=== PATIENT | female | born 1935 | race Caucasian/White ===

== ENCOUNTER 2017-04-15 19:29 | Inpatient (IN) ==
[2017-04-15] MEDS ORDERED: SODIUM CHLORIDE 0.9% INJ ONE (19:50)
[2017-04-15] MEDS ORDERED: PROTONIX IV ONE (19:50)
[2017-04-15] MEDS ORDERED: ZOFRAN IV ONE ×2 (19:50→22:13)
--- NOTE | 2017-04-15 20:12 | Diag Imaging Result Doc PS360 ---
EXAM: CHEST-PORTABLE - 04/15/2017 HISTORY: weakness TECHNIQUE: Portable chest 2000 COMPARISON: None. FINDINGS: Heart size is normal. 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 The lungs otherwise appear clear. There is no pleural effusion or pneumothorax identified. There is mild scoliosis noted. IMPRESSION: No evidence of acute disease. Electronically signed by Wallace Nunez 04/15/2017 8:10 PM
[2017-04-15] MEDS ORDERED: NS 1,000 ML IV ONE ×2 (20:16→21:54)
[2017-04-15] MEDS ORDERED: NS 2,000 ML ONE (20:17)
[2017-04-15 20:22] LABS: BASO% 0.2 % (0.0-0.8); EOS# 0.02 X1000 (0.0-0.7); EOS% 0.2 % (0.0-10.0); HEMATOCRIT 18.9 % (37.0-47.0); IMM GRAN# 0.05 X1000 (0.0-0.04); IMM GRAN% 0.4 % (0.0-0.5); LYMPH# 0.94 X1000 (1.2-3.4); LYMPH% 7.8 % (20.5-51.1); MANUAL DIFF NEEDED? NO; MCH 25.9 PG (27-31); MCHC 31.2 g/dL (33-37); MCV 82.9 FL (81-99); MONO# 0.55 X1000 (0.11-0.59); MONO% 4.6 % (1.7-9.3); NEUT% 86.8 % (42.2-75.2); PLT 342 X1000 (130-400); RBC 2.28 XMIL (4.2-5.4)
[2017-04-15 20:23] LABS: HEMOGLOBIN 5.9 g/dL (12.0-16.0)
--- NOTE | 2017-04-15 20:24 | PROVIDER DOCUMENTATION ---
HPI-Abdominal Pain/GI Problem - General Chief Complaint: GI Bleed Stated Complaint: lower gi bleed Time Seen by Provider: 04/15/17 19:39 Source: patient Allergies/Adverse Reactions: Patient Allergies Allergy/AdvReac Type Severity Reaction Status Date / Time Penicillins Allergy Unknown Verified 04/15/17 22:44 Home Medications: Home Medication List Medication Instructions Recorded Confirmed Last Taken Type Albuterol Sulfate Inhaler 2 puff INH Q4-6H PRN PRN 04/15/17 04/15/17 Unknown History [Ventolin Hfa] Allopurinol [Allopurinol] 100 mg PO QAM 04/15/17 04/15/17 04/15/17 History Amlodipine [Norvasc] 10 mg PO DAILY 04/15/17 04/15/17 04/15/17 History Calcium Carbonate/Vitamin D3 1 tab PO BID 04/15/17 04/15/17 04/14/17 History [Calcium 500 + Vit D 200 Tablet] Ferrous Sulfate 1 tab PO DAILY 04/15/17 04/15/17 04/15/17 History Fluticasone 50 Mcg Nasal Maddock 2 sprays INH DAILY 04/15/17 04/15/17 04/15/17 History [Flonase] Fluticasone/Salmet 250/50 INH 1 puff INH BID 04/15/17 04/15/17 04/15/17 History [Advair 250/50 Diskus] Hydrochlorothiazide 25 mg PO DAILY 04/15/17 04/15/17 04/15/17 History Levothyroxine [Synthroid] 0.5 mg PO DAILY 04/15/17 04/15/17 04/15/17 History Losartan Potassium 100 mg PO DAILY 04/15/17 04/15/17 04/15/17 History Meloxicam [Meloxicam] 1 tab PO DAILY 04/15/17 04/15/17 04/15/17 History P Montelukast Sodium 10 mg PO DAILY 04/15/17 04/15/17 04/15/17 History Mupirocin Calcium [Mupirocin] 1 gm TD TID 04/15/17 04/15/17 04/15/17 History Mupirocin Ointment [Bactroban 1 gm TD TID 04/15/17 04/15/17 04/15/17 History Ointment] Omeprazole [Omeprazole] 20 mg PO DAILY 04/15/17 04/15/17 04/15/17 History Permethrin 5% Cream [Elimite 5% 2 gm TD DAILY 04/15/17 04/15/17 04/14/17 History Cream] - History of Present Illness-ABD Nature of Presenting Problems: pt presents via ems. She has several episodes of coffee ground like emesis and then later on was passing burgundy colored blood clots per rectum. She has become progressively more weak throughout the day. She is not anticoagulated but does take meloxicam. No cp, dyspnea, abd pain, fever, back pain. Associated Symptoms: reports: fatigue, nausea, vomiting. denies: anxiety, cough , diarrhea, fever/chills, joint pain Dark Stools Present?: reports: maroon Rectal Bleeding: reports: bleeding without stool Rectal Pain: reports: none Emesis Description: reports: coffee grounds Bruising or Bleeding Gums?: No Similar Symptoms Previously?: No Recently seen or treated by another doctor?: No Review of Systems - Adult - REVIEW OF SYSTEMS - ADULT Constitutional: reports: fatique Eyes: reports: no symptoms reported Ears, Nose, Mouth & Throat: reports: no symptoms reported Cardiovascular: reports: no symptoms reported Respiratory: reports: no symptoms reported. denies: cough, shortness of breath Gastrointestinal: reports: see HPI Genitourinary: reports: no symptoms reported Musculoskeletal: reports: no symptoms reported. denies: back pain Integumentary: reports: no symptoms reported. denies: rash Neurological: reports: dizziness/vertigo. denies: numbness Psychiatric: reports: no symptoms reported Endocrine: reports: no symptoms reported Hematologic/Lymphatic: reports: no symptoms reported Allergic/Immunologic: reports: no symptoms reported All Other Systems: Reviewed and Negative Past History - Adult - PAST MEDICAL HISTORY-ADULT Review of Records: reports: Old Records Reviewed Major Childhood Illnesses: reports: denies history Cardiovascular: reports: HTN Respiratory: reports: denies history Gastrointestinal: reports: denies history Obstetrical/Gynecological: reports: denies history Genitourinary: reports: denies history Musculoskeletal: reports: denies history Neurological: reports: denies history Endocrine/Immune: reports: denies history Other Conditions: reports: denies history - PRIOR SURGERIES/PROCEDURES Surgical/Procedure History: reports: cholecystectomy, hysterectomy - FAMILY HISTORY Family History: reviewed, not pertinent - SOCIAL HISTORY Smoking: denies Substance Use: none/never Alcohol Use Frequency: never Physical Exam-General - PHYSICAL EXAM-ADULT Initial Vital Signs Reviewed: Yes - CONSTITUTIONAL General Appearance: alert - EYES Eyes: PERRL/EOMI, other (pale conjunctiva) - HEAD, EARS, NOSE, MOUTH & THROAT HENMT: normocephalic/atraumatic - NECK Neck: supple - RESPIRATORY Respiratory: lungs clear, normal breath sounds - CARDIOVASCULAR Cardiovascular: normal peripheral pulses, tachycardia - GASTROINTESTINAL (ABDOMEN) Abdominal Exam: normal bowel sounds, non tender, soft, no organomegaly, other ( mixture of dark/maroon stool in rectal vault.) - MUSCULOSKELETAL Back Exam: normal inspection, no CVA tenderness Extremity: non-tender - SKIN Integumentary: normal turgor, warm/dry, pallor - NEUROLOGIC Neurologic: grossly normal, no motor/sensory deficits Progress - PLAN OF CARE/RESULTS Progress/Plan/Lab Results: Vital Signs - 8 hr 04/15/17 19:52 04/15/17 20:03 04/15/17 20:16 Temperature 97.8 F Pulse Rate 140 H 118 H 123 H Respiratory Rate 20 16 25 H Blood Pressure 109/52 109/52 68/37 O2 Sat by Pulse Oximetry 98 100 Laboratory Results - last 24 hr 04/15/17 04/15/17 19:43 19:43 WBC 12.07 H RBC 2.28 L Hgb 5.9 L* Hct 18.9 L MCV 82.9 MCH 25.9 L MCHC 31.2 L RDW Std Deviation 15.1 H Plt Count 342 MPV 10.0 Immature Gran % (Auto) 0.4 Neut % (Auto) 86.8 H Lymph % (Auto) 7.8 L Saunders % (Auto) 4.6 Eos % (Auto) 0.2 Baso % (Auto) 0.2 Immature Gran # (Auto) 0.05 H Neut # (Auto) 10.49 H Lymph # (Auto) 0.94 L Saunders # (Auto) 0.55 Eos # (Auto) 0.02 Baso # (Auto) 0.02 Lipase 18 Orders Category Date Time Status Cardiac Monitoring DIRECTED Care 04/15/17 19:51 Active Saline Loc NOW Care 04/15/17 19:51 Active Transfuse .Give-Transfuse Care 08/06/17 20:22 Active CHEST-PORTABLE [RAD] Stat Exams 04/15/17 19:50 Completed CBC WITH ELECTRONIC DIFF [HEME] Stat Lab 04/15/17 19:43 Completed CK PROFILE [SP CHEM] Stat Lab 04/15/17 19:43 Received COMPREHENSIVE METABOLIC PANEL [CHEM] Stat Lab 04/15/17 19:43 Received LIPASE [CHEM] Stat Lab 04/15/17 19:43 Completed LRPC (RED CELLS) [BBK] Stat Lab 04/15/17 20:11 Uncollected MAGNESIUM [CHEM] Stat Lab 04/15/17 19:43 Received PROTIME WITH INR [COAG] Stat Lab 04/15/17 19:43 Received PTT [COAG] Stat Lab 04/15/17 19:43 Received TROPONIN T Stat Lab 04/15/17 19:43 Received TYPE & SCREEN [BBK] Stat Lab 04/15/17 19:43 Received UA NIMS W/REFLEX CULT [URINALYSIS] Stat Lab 04/15/17 19:50 Uncollected 0.9% Sodium Chloride Inj [Ns] 1,000 ml Med 04/15/17 20:17 Discontinued .ROUTE As Directed 0.9% Sodium Chloride Inj [Ns] 1,000 ml Med 04/15/17 20:16 Active IV 999 mls/hr Ondansetron [Zofran] Med 04/15/17 19:50 Discontinued 4 mg IV NOW ONE Pantoprazole [Protonix] Med 04/15/17 19:50 Discontinued 80 mg IV NOW ONE Sodium Chloride 0.9% Med 04/15/17 19:50 Discontinued 10 ml INJ NOW ONE EKG [EKG] Stat Ther 04/15/17 19:35 Ordered EKG [EKG] Stat Ther 04/15/17 19:51 Ordered 2200: pt becoming more hypotensive despite [address] Wylie and Dr. Mosley made aware of this. Dr. Keene is coming in to do egd. Result Diagrams: 04/15/17 22:04 04/15/17 22:04 - CONSULTS/PCP/HOSPITALIST Notification #1 *Consult/PCP/Hospitalist*: Dr. Keene Time Discussed: 20:30 Reason/Comments: see in am Consult Disposition: Admit #2 Consult: Dr. Mosley Time Discussed: 20:40 Consult Disposition: Will see in ED Departure - Departure Date of Disposition Decision: 04/15/17 Time of Disposition Decision: 21:03 DIAGNOSIS: GI bleed Qualifiers: GI bleed type/associated pathology: unspecified gastrointestinal hemorrhage type Qualified Code(s): K92.2 - Gastrointestinal hemorrhage, unspecified Anemia Qualifiers: Anemia type: unspecified type Qualified Code(s): D64.9 - Anemia, unspecified Disposition: ADMITTED INPATIENT 09 Certified Medical Emergency: Emergent Condition: Critical - Critical Care Note This patient required my direct & personal management of CC.: Yes Total Time (mins): 45 Critical Care Statement: This patient required my direct personal management to treat or rule out processes, the absence of which, could potentiallly result in sudden, clinically significant life or limb threatening deterioration. Attestation - Physician/ JANEY Attestation Patient care was provided by Advanced Practice Provider:: Yes Advanced Practice Provider:: Vin Veliz Advanced Practice Provider documentation review:: The Mid-level provider documentation, treatment plan and medical decision making was reviewed by the physician who agrees with all treatment and medical decision making by the MLP. The physician spent face to face time with patient:: No Advanced Practice Provider documentation review:: Supervising physician onsite and consulted in the evaluation and care of this patient. The physician did not have a face to face encounter with the patient.
[2017-04-15 20:25] LABS: ALBUMIN 2.8 g/dL (3.5-5.0); CALCIUM 7.7 mg/dL (8.8-10.2); MAGNESIUM 1.8 mg/dL (1.5-2.7); POTASSIUM 3.8 mmol/L (3.5-5.1); TOTAL BILIRUBIN 0.22 mg/dL (0.20-1.00); TOTAL PROTEIN 5.2 g/dL (6.3-8.3)
--- NOTE | 2017-04-15 20:46 | ED EKG INTERP ---
This chart was entered by Jacob Iverson Scribe, acting as scribe for Jose French MD. EKG Interpretation - EKG Time of EKG reading by physician:: 20:10 EKG Read and Signed by:: Jose French EKG Interpretation (*Must complete 3 of following elements*): Abnormal (Poor R wave progression) Rate: 99 Rhythm: NSR Attestation - Physician/ JANEY Attestation Patient care was provided by Advanced Practice Provider:: No The physician spent face to face time with patient:: Yes Advanced Practice Provider documentation review:: Supervising physician onsite and consulted in the evaluation and care of this patient. The physician did have a face to face encounter with the patient. This chart was documented by the indicated scribe, (Jacob Iverson Scribe) and accurately reflects the services I performed and decisions made by me, Jose Moore MD, as attested by the provider's signature.
[2017-04-15 20:51] LABS: INR 1.08; PROTIME 11.4 Seconds (9.2-11.7); PTT 24.5 Seconds (22.0-36.0)
[2017-04-15] MEDS ORDERED: ZOFRAN ONE (21:57)
[2017-04-15] MEDS: LEVOPHED 8 MG in D5 1/2 NS 250 ML IV SCH ×2 (22:12→23:15)
[2017-04-15 22:13] LABS: URINE CULTURE NEEDED? NO; URINE MICRO REVIEW NEEDED? NO; URINE SOURCE CATH
[2017-04-15 22:17] LABS: BILIRUBIN URINE NEGATIVE (NEGATIVE); BLOOD URINE NEGATIVE (NEGATIVE); COLOR YELLOW; GLUCOSE URINE NEGATIVE (NEGATIVE); LEUKOCYTES URINE NEGATIVE (NEGATIVE); NITRITE URINE NEGATIVE (NEGATIVE); PROTEIN URINE TRACE mg/dL (NEGATIVE); SP GRAVITY URINE 1.013; TURBIDITY URINE CLEAR (CLEAR); UROBILINOGEN URINE NORMAL (NORMAL)
[2017-04-15 22:18] LABS: UR EPITHELIAL CELLS <10 /HPF (<10); URINE BACTERIA NEGATIVE /HPF; URINE RBC <10 /HPF (<10); URINE WBC <10 /HPF (<10)
--- NOTE | 2017-04-15 22:34 | HISTORY AND PHYSICAL ---
PRIMARY CARE PROVIDER: Ute Rosario MD GASTROENTEROLOGY SPECIALIST: Alvin Bowens MD CHIEF COMPLAINT: Blood in stool and vomit. HISTORY OF PRESENT ILLNESS: This is a pleasant, but somewhat confused 81-year- old female lying in the ER stretcher. Her family states for the past 6 or so hours she has been having blood in her stool and emesis. Over the past couple of days, the family states that she has been complaining of abdominal pain. However, the patient states that she has had no pain and is healthy. She does not even have to take Tylenol. It turns out that she does take medications, quite a few apparently; however, a list is not available at this time. The one medication everyone agreed that she does take is Mobic for arthritis, which could definitely have precipitated some of this bleeding. A hemoglobin and hematocrit was obtained in the emergency room. It was 5.9 and 18.9. The patient is chronically anemic; however, this is well below her baseline. Her BUN and creatinine were also noted to be 46 and 1.8. Again, she does have chronic kidney disease stage 3A, but this is an acute on chronic kidney injury. She will be admitted to the ICU as she has been hypotensive at times in the emergency room. She has now received 2 units of packed red blood cells and is in the process of receiving a 3rd. She will receive a liter bolus of fluids and be started on Kp-Synephrine. We will recheck a hemoglobin and hematocrit at midnight. Hopefully the 3rd unit will have been transfused at that time. ER is calling Dr. Keene who has already been consulted to let him know that the patient continues to bleed and is still hypotensive. PAST MEDICAL HISTORY: 1. Asthma. 2. Hypertension. 3. Arthritis. 4. Hyperlipidemia. 5. Hypothyroidism. PREVIOUS SURGICAL HISTORY: 1. Cholecystectomy. 2. Hysterectomy. SOCIAL HISTORY: She lives alone. Family at bedside. Appear to be very supportive. She denies tobacco, alcohol or illicit drug use or abuse. FAMILY HISTORY: She has 2 kids with hypertension. Otherwise, the family states that there are no chronic health issues. Her mother had Alzheimer's. ALLERGIES: Penicillin causing hives. HOME MEDICATIONS: A list of home medications is not available at this time. An order was placed for nursing to reconcile home medications. They will be restarted when appropriate. REVIEW OF SYSTEMS: Fourteen point review of systems conducted with the patient. This was technically difficult as the patient is only somewhat oriented. She is oriented to person and place. Disoriented to time and situation. She is confused somewhat on current events. She denies complaint. Pertinent positives are listed above in the HPI. All other systems were reviewed and negative. PHYSICAL EXAMINATION: VITAL SIGNS: Temperature 97.8 degrees, pulse 108, respirations 17, blood pressure 100/56, however, it has been as low as 60/37. Oxygen saturation 99% on 2 L nasal cannula. GENERAL: Pleasantly confused, 81-year-old female lying flat in the ER stretcher. She is oriented to person and place, disoriented to time and situation. Has had bouts of hypotension, but does not appear to be in acute distress at the time examination. HEENT: Head is atraumatic, normocephalic. Pupils equal, round, reactive to light. Extraocular eye movement intact. Sclerae is anicteric. Conjunctivae is very pale. Oral mucosa is dry. NECK: Supple. No JVD. No thyromegaly. Trachea is midline. No cervical lymphadenopathy. CARDIAC: S1-S2 appreciated. Sinus tachycardia. No murmurs, gallops, rubs. LUNGS: Clear to auscultation bilaterally. No rhonchi, wheezes or rales. Symmetrical rise and fall with respirations. ABDOMEN: Soft, nondistended, nontender. Bowel sounds present in all 4 quadrants. Normoactive. No pulsatile mass. No organomegaly. EXTREMITIES: No clubbing, cyanosis, or edema. SKIN: Pale and dry. Multiple scabs noted on bilateral upper extremities and bilateral lower extremities, apparently related to the patient being anxious and picking and scratching at her skin. NEUROLOGICAL: Patient is awake and alert. Oriented to person, place, disoriented to time and situation as well as some confusion to current events. Cranial nerves 2-12 appear to be grossly intact. No focal motor deficits are noted. LABORATORY DATA: WBC 12.07, hemoglobin 5.9, hematocrit 18.9, platelet count 342 ,000. Coagulase within normal limits. Sodium 134, potassium 3.8, chloride 97. Carbon dioxide 19. BUN 46, creatinine 1.8, glucose 220. ASSESSMENT AND PLAN: 1. Upper gastrointestinal bleed. The patient is in the process of receiving her 3rd unit of packed red blood cells. Dr. Keene has been consulted. The emergency room has been asked to please update Dr. Keene of the patient's continued bleeding and hypotension. I will give 1 L bolus and start on IV vasopressors. 2. Acute kidney injury on chronic kidney disease, stage 3A. This is likely secondary to acute blood loss anemia. The patient is volume depleted and hypotensive. We will give fluid bolusing as well as packed red blood cells. Hopeful that this will return to baseline. 3. History of hypertension. The patient's home medication list is not available at this time. However, her medicine for hypertension would have been held at any rate as she is now hypotensive and will be started on IV vasopressors. 4. Hyperlipidemia. Check a lipid profile. Continue statin. If patient is on one when available and taking by mouth. Hold nothing per oral at this time. 5. Hypothyroidism. Check thyroid stimulating hormones. Restart Synthroid when dosing is available and patient is taking p.o. Further recommendations per patient clinical course history. Dictated by MARIA GUADALUPE Nelson for Sherrie Mosley MD Seen,examined pt with discussion with [employer]IATION TACTICAL READINESS OFFICER cc: MARIA GUADALUPE Nelson MD Faye Wilson, MD Thomas P. Short, MD MTDD
[2017-04-15 22:39] LABS: POTASSIUM 3.9 mmol/L (3.5-5.1)
[2017-04-15 22:54] LABS: HEMATOCRIT 27.4 % (37.0-47.0); HEMOGLOBIN 8.8 g/dL (12.0-16.0)
[2017-04-15] MEDS ORDERED: AMIDATE ONE (22:59)
[2017-04-15] MEDS ORDERED: CALCIUM GLUCONATE 1 GM in NS 50 ML IV ONE (23:13)
[2017-04-15] MEDS ORDERED: PROTONIX IV SCH (23:35)
[2017-04-15] MEDS ORDERED: SODIUM CHLORIDE 0.9% INJ SCH (23:35)
[2017-04-15] MEDS ORDERED: ZOFRAN IV PRN (23:35)
[2017-04-15] MEDS ORDERED: NS 1,000 ML IV SCH (23:35)
[2017-04-15] MEDS ORDERED: EPINEPHRINE SYRINGE ONE (23:51)
[2017-04-15] MEDS ORDERED: SODIUM CHLORIDE 0.9% 10 ML ONE (23:59)
[2017-04-15] MEDS ORDERED: NORCURON ONE (23:59)
[2017-04-16 00:32] LABS: HDL 48 mg/dL (45-65); LDL 52 mg/dL; TRIGLYCERIDES 80 mg/dL (35-135); VLDL 16 mg/dL
[2017-04-16 00:36] LABS: IRON SATURATION 9 %; TIBC 233 ug/dL; TOTAL IRON 21 ug/dL (49-151); UNBOUND IRON 212 ug/dL (112-346)
[2017-04-16 00:50] LABS: HEMOGLOBIN A1C 5.2 % (4.8-6.0)
[2017-04-16 00:51] LABS: FERRITIN 49 ng/mL (13-150)
[2017-04-16 01:32] LABS: HEMATOCRIT 31.1 % (37.0-47.0); HEMOGLOBIN 10.2 g/dL (12.0-16.0); MCHC 32.8 g/dL (33-37); MCV 85.4 FL (81-99); MPV 10.2 FL (7.4-10.4); RBC 3.64 XMIL (4.2-5.4)
[2017-04-16 02:11] LABS: ALBUMIN 2.2 g/dL (3.5-5.0); POTASSIUM 4.8 mmol/L (3.5-5.1); TOTAL BILIRUBIN 0.81 mg/dL (0.20-1.00); TOTAL PROTEIN 3.8 g/dL (6.3-8.3)
[2017-04-16 02:14] LABS: CALCIUM 6.6 mg/dL (8.8-10.2)
--- NOTE | 2017-04-16 03:04 | OPERATIVE NOTE ---
PROCEDURE DATE:04/16/17 PROCEDURE: Esophagogastroduodenoscopy and injection therapy. PREOPERATIVE DIAGNOSIS: Upper gastrointestinal bleed. POSTOPERATIVE DIAGNOSIS: Possible duodenal ulcer with fresh oozing in the duodenum, injected. DESCRIPTION OF PROCEDURE: After informed consent and adequate sedation initially, and under endotracheal intubation to protect the airway, the scope introduced into the esophagus. No Jaja-Gorman tear or esophageal varices. There is a large clot in the fundus. All the liquid blood was evacuated. The clot itself could not be aspirated because of the size of it but there is no active bleeding. In the duodenum, there is a clot as well as some fresh active oozing in the bulbar area. The clot again could not be removed and the ulcer base could not be exposed. At this point, multiple injections of epinephrine were given in the entire the bulb and the proximal portion of the 2nd portion of the duodenum. There is no active oozing at the end of the procedure. All the liquid blood was aspirated except the clot itself. The patient received transfusions and remained stable during the procedure per anesthesia. We will ask for surgical backup. Hopefully, if she does not bleed, we can take a 2nd look and identify the ulcer itself after the clots are emptied out of the stomach. We will decide further management depending on the clinical course. cc: Terri Keene MD MTDJenny
[2017-04-16 05:15] LABS: ALLEN TEST YES; BE -17.4 mmoll (-3.0-3.0); BLOOD TYPE ARTERIAL; DRAW SITE R RADIAL; METHB 0.4 % (0.0-1.5); PCO2(98.6) 41 mmHg (35-45); PO2(98.6) 57 mmHg (60-100); SAMPLE BLOOD; SAO2 92.3 % (95.0-100.0); SRATE 14 BPM; THB 10.3 g/dL (11.5-17.4); TVOL 500 mL
[2017-04-16 05:16] LABS: MODALITY VENTILATOR; pH(98.6) 7.07 (7.35-7.45)
[2017-04-16] MEDS: NEO-SYNEPHRINE 50 MG in NS 250 ML IV SCH ×3 (05:39→10:55)
[2017-04-16 05:45] LABS: BASO% 0.1 % (0.0-0.8); EOS# 0.06 X1000 (0.0-0.7); EOS% 0.2 % (0.0-10.0); HEMATOCRIT 29.7 % (37.0-47.0); HEMOGLOBIN 9.6 g/dL (12.0-16.0); IMM GRAN# 0.15 X1000 (0.0-0.04); IMM GRAN% 0.6 % (0.0-0.5); LYMPH# 1.69 X1000 (1.2-3.4); LYMPH% 6.7 % (20.5-51.1); MANUAL DIFF NEEDED? YES; MCH 27.6 PG (27-31); MCHC 32.3 g/dL (33-37); MCV 85.3 FL (81-99); MONO# 1.57 X1000 (0.11-0.59); MONO% 6.2 % (1.7-9.3); MPV 10.5 FL (7.4-10.4); NEUT% 86.2 % (42.2-75.2); PLT 241 X1000 (130-400); RBC 3.48 XMIL (4.2-5.4)
[2017-04-16 06:01] LABS: BANDS 22 % (0-1); LYMPHS 6 % (21-51); MONO 6 % (1-9)
[2017-04-16] MEDS: NS 1,000 ML IV SCH ×4 (06:09→08:40)
[2017-04-16 06:10] LABS: CALCIUM 7.1 mg/dL (8.8-10.2)
[2017-04-16 06:13] LABS: POTASSIUM 4.9 mmol/L (3.5-5.1)
--- NOTE | 2017-04-16 06:48 | EKG Report ---
Test Performed on : 04/16/2017 06:10:41 AM Test Reason : anemia Blood Pressure : / mmHG Vent. Rate : 103 BPM Atrial Rate : 103 BPM P-R Int : 170 ms QRS Dur : 076 ms QT Int : 346 ms P-R-T Axes : 078 015 026 degrees QTc Int : 453 ms Sinus tachycardia. Low voltage QRS Cannot rule out Anterior infarct (cited on or before 15-APR-2017) Abnormal ECG When compared with ECG of 15-APR-2017 20:02, (Unconfirmed) Questionable change in initial forces of Anteroseptal leads Bi-phasic T wave in far lateral leads noted - new EKG from 04/15/2017 at 20:02- not reviewed EKG from 04/15/2017 at 19:44 - not reviewed Confirmed by Paras Berry DO ([id number]) on 04/16/2017 6:10:25 PM
[2017-04-16] MEDS: LEVOPHED 8 MG in D5 1/2 NS 250 ML IV SCH ×2 (06:51→11:19)
[2017-04-16] MEDS ORDERED: SODIUM BICARBONATE 8.4% 100 MEQ in 1/2 NS 1,000 ML IV SCH (07:14)
--- NOTE | 2017-04-16 07:16 | Diag Imaging Result Doc PS360 ---
EXAM: CHEST-PORTABLE HISTORY: ett placement TECHNIQUE: AP supine portable chest at 0130 COMMENT: There is volume loss in the left hemithorax which was not present on 04/15/2017. The endotracheal tube is present at the thoracic inlet. The right lung is somewhat more hyperinflated. IMPRESSION: Left upper lobe atelectasis with marked volume loss of the left hemithorax. The possibility of mucous plugging should be considered. Electronically signed by Davis Cleveland 04/16/2017 7:13 AM
[2017-04-16] MEDS ORDERED: PROTONIX 80 MG in NS 80 ML IV SCH (07:21)
[2017-04-16] MEDS ORDERED: VANCOMYCIN IV PER PHARMACY MISC SCH (07:30)
[2017-04-16] MEDS ORDERED: DOPAMINE 400 MG/D5W 400 MG/500 ML IV.SOLN IV SCH (08:14)
[2017-04-16] MEDS ORDERED: CALCIUM GLUCONATE IV PUSH STA (08:23)
[2017-04-16 08:25] LABS: ALLEN TEST NO; BE -19.3 mmoll (-3.0-3.0); BLOOD TYPE ARTERIAL; DRAW SITE R BRACHIAL; O2(CT) 9.6 mL/dL (15.0-23.0); PCO2(98.6) 39 mmHg (35-45); PO2(98.6) 82 mmHg (60-100); SAMPLE BLOOD; SAO2 99.9 % (95.0-100.0); SRATE 20 BPM; THB 6.9 g/dL (11.5-17.4); TVOL 500 mL
[2017-04-16 08:26] LABS: MODALITY VENTILATOR
[2017-04-16 08:27] LABS: pH(98.6) 7.02 (7.35-7.45)
[2017-04-16 08:42] LABS: ALBUMIN 2.1 g/dL (3.5-5.0); DIRECT BILIRUBIN 0.2 mg/dL (0.00-0.20); TOTAL BILIRUBIN 1.27 mg/dL (0.20-1.00); TOTAL PROTEIN 3.6 g/dL (6.3-8.3)
[2017-04-16] MEDS ORDERED: VANCOMYCIN 1,350 MG in NS 250 ML IV ONE (09:00)
[2017-04-16] MEDS ORDERED: PROTONIX IV SCH (09:00)
[2017-04-16] MEDS: HYDROXYZINE PO SCH ×2 (09:04→14:26)
[2017-04-16] MEDS: HUMULIN R SUBQ SCH ×3 (09:04→15:51)
[2017-04-16] MEDS ORDERED: NS 1,000 ML IV ONE (10:35)
[2017-04-16] MEDS ORDERED: SOLU-CORTEF IV ONE (10:36)
[2017-04-16 10:40] LABS: HEMATOCRIT 24.5 % (37.0-47.0); HEMOGLOBIN 7.8 g/dL (12.0-16.0); MCH 27.4 PG (27-31); MCHC 31.8 g/dL (33-37); MPV 10.4 FL (7.4-10.4); RBC 2.85 XMIL (4.2-5.4)
[2017-04-16] MEDS: ALBUMIN 25% IV SCH ×3 (10:55→15:13)
[2017-04-16 11:03] LABS: ALBUMIN 1.7 g/dL (3.5-5.0); POTASSIUM 3.9 mmol/L (3.5-5.1); TOTAL BILIRUBIN 0.9 mg/dL (0.20-1.00); TOTAL PROTEIN 2.6 g/dL (6.3-8.3)
[2017-04-16 11:07] LABS: CALCIUM 6.3 mg/dL (8.8-10.2)
[2017-04-16] MEDS ORDERED: MORPHINE IV PRN (12:07)
[2017-04-16] MEDS ORDERED: ATIVAN IV PRN (12:09)
[2017-04-16] MEDS: MERREM 500 MG in NS 50 ML IV SCH (14:27)
[2017-04-16] MEDS ORDERED: TRANSDERM-SCOP TD SCH (15:15)
[2017-04-16 16:12] VITALS: BP 47/26
--- NOTE | 2017-04-16 17:49 | PROGRESS NOTE ---
DATE: 04/16/2017 SUBJECTIVE: Patient is currently intubated, vented and sedated. Her family is at the bedside. I also spoke to Dr. Blanton. The patient was admitted last night and she had an EGD with injection treatment of possible bleeding duodenal ulcer. She possibly had aspiration pneumonia and some atelectasis, respiratory distress and had intubation. So far she is maxed on 2 pressors and she has at 70% FiO2. No fevers reported. Per the nursing records, no more vomiting blood noted after the procedure. No stool output noted also. OBJECTIVE: Vital signs: Temperature of 96.2 degrees, pulse rate of 102, respiratory rate 20, blood pressure 100/49, saturating 92% on 70% FiO2. Body weight of 136 pounds 5 ounces. General Appearance: Moderately nourished, lying in bed, intubated and vented. HEENT: No pallor. No icterus. PEG tube in place. Abdomen: Mildly protuberant, soft, nontender, no guarding. Extremities: No cyanosis, clubbing. Neurologic: She is intubated and sedated. She is on pressors. LABORATORY DATA: Hemoglobin and hematocrit 7.8, 24.5, hematocrit 26.09, platelet count of 195,000. MCV of 86, INR 1.08. PT11.4, PTT of 24.5, pH of 7.02, pCO2 39, PO2 82 , bicarbonate 9.9, lactate of 7.8 on FiO2 of 70%. Sodium 132, potassium 4.8, chloride 102, bicarbonate of anion gap 13, BUN of 41, creatinine 1.5, glucose of 330, calcium 6.6, total bilirubin is 1.07, direct of 0.2, AST 16, ALT 9, Albumin 2.1. TSH of 4.71. IMPRESSION AND PLAN: 1. Upper gastrointestinal bleed status EGD with injection treatment for possible duodenal ulcer. We will need to repeat the EGD at some point, once her hemodynamic status improves, we will continue Protonix drip for now. We will keep a watch on the hemoglobin and hematocrit and type and cross, transfuse to keep hematocrit more than 25%. 2. Respiratory failure status intubation and ventilation being monitored by Dr. Blanton. 3. Lactic acidosis. This could be a sign of sepsis. She is on broad-spectrum antibiotics and blood cultures have been drawn which are currently pending. 4. Mild renal insufficiency. Continue to watch. 5. Electrolyte imbalance. Being monitored by the primary team. 6. Gastrointestinal prophylaxis as above with PPIs. The patient is critical at this point, and the family is aware of the current situation. I have discussed the plan with the patient's family and Dr. Blanton. Further recommendations pending the hospital course. cc: MD Leobardo Echeverria MD Manish Arora, MD Dr. Walker MTDD
--- NOTE | 2017-04-16 18:37 | CONSULTATION ---
DATE OF CONSULTATION: 04/16/2017 PULMONARY CONSULTATION PERFORMED: 04/16/2017. REQUESTING PHYSICIAN: Dr. Dickey. REASON FOR CONSULTATION: Respiratory failure. HISTORY OF PRESENT ILLNESS: Ms. Lacy is an 81-year-old, white female who currently lives at home but is showing some signs of decline according to her family, who developed abdominal pain over the last several days. She presented to the emergency room with a several hour history of bloody stools subsequently follow by hematemesis. The patient was hypotensive and is with circulatory shock upon presentation with a hemoglobin of 5.9. The patient received multiple units of packed blood cells and an emergent EGD was performed by Dr. Keene. The patient had no evidence of bleeding upon entering the stomach, but did have a large clot in the bulbar area of the duodenum. The ulcer base could not be exposed due to the adherent clot. The site was injected with epinephrine. The patient has remained on mechanical ventilation. She is hypotensive and currently is on Kp-Synephrine and Levophed. PAST MEDICAL HISTORY PROBLEM LIST: 1. Hypertension. 2. Arthritis. 3. Dyslipidemia. 4. Hypothyroidism. 5. Asthma. 6. Status post cholecystectomy. 7. Status post hysterectomy. SOCIAL HISTORY: The patient continues to live alone, as per above. No tobacco use. No alcohol use. FAMILY HISTORY: Positive for: 1. Alzheimer's. 2. Hypertension. REVIEW OF SYSTEMS: Cannot be obtained. PHYSICAL EXAMINATION: General: Reveals a poorly responsive, white female on mechanical ventilation. Vital signs: Blood pressure was 72/50 upon arrival but has improved with additional volume resuscitation. BP 100/49, heart rate 98 and irregular, respiration rate 20, oxygen saturation 100% on mechanical ventilation. HEENT: Pupils are equal, but sluggish. Oropharynx evaluation is limited with endotracheal tube in place. Neck: Supple. Chest: Reveals coarse rhonchi bilaterally. Cardiac Exam: Distant heart sounds. Normal S1, normal S2. Abdomen: Soft. No bowel sounds are present. Extremities: Cool to the touch. LABORATORIES: Chest x-ray: Reveals infiltrate with possible atelectasis of the left upper lobe. Arterial blood gas: Reveals a pH 7.02, pCO2 of 39, PO2 of 82 with a lactate of 7.8. CBC: White blood count 53759 hemoglobin 9.2, platelet count 241,000. IMPRESSION: An 81-year-old with massive duodenal bleed who currently has hypoxemic and respiratory failure, probable aspiration of gastric contents. Given radiographic changes leading to aspiration pneumonia, circulatory shock requiring 2 vasopressors, she continues to have significant lactic acidosis, acute renal failure. PROGNOSIS: Guarded at this juncture and her family has requested no heroic resuscitation events if she were to develop a cardiopulmonary arrest. RECOMMENDATIONS: 1. Continue full ventilatory support. 2. Volume resuscitation as tolerated. She is currently getting her 3rd and 4th L saline ordered by this practitioner. 3. Additional calcium, given her multiple blood products. 4. DNR level 1, as per above. The patient's prognosis is guarded but she might survive if she can be resuscitated. cc: Leobardo Blanton MD
[2017-04-18] MEDS ORDERED: VANCOMYCIN 1 GM/NS 1 GM/250 ML IVPB IV SCH (09:00)
--- NOTE | 2017-04-18 11:05 | CONSULTATION ---
DATE OF CONSULTATION: 04/15/2017 REASON FOR CONSULTATION: Vomiting blood and passing bloody stools. HISTORY OF PRESENT ILLNESS: This is a pleasant 81-year-old lady who came in with a history of having hematemesis and bloody stools. She was having abdominal pain for the last couple of days. She had no history of GI bleed. She does not take any aspirin but she does take some medicine for arthritis which she thinks it is Mobic. When patient came to the emergency room , the H and H is 5.9 and 18.9. She has a history of anemia with a BUN of 46 and creatinine 1.8 and chronic kidney disease, stage 3a. She has been hypotensive. She was resuscitated with fluids and had received 2 units of packed red cells and receiving the 3rd, and she was started on Kp- Synephrine, and the patient continued to do poorly and started vomiting blood again. I was asked to come in and see her immediately, evaluate and possible upper endoscopy. PAST MEDICAL HISTORY: 1. Asthma. 2. Hypertension. 3. Arthritis. 4. Hyperlipidemia. 5. Hypothyroid. PREVIOUS SURGICAL HISTORY: Cholecystectomy, hysterectomy. SOCIAL HISTORY: She lives alone. Both her son and daughter are at bedside. She does not smoke, drink, or use any drugs. FAMILY HISTORY: Positive for hypertension. Her mother had Alzheimer's. ALLERGIES: Penicillin. HOME MEDICATIONS: Not available, but as I mentioned earlier in HPI, she is taking Mobic. REVIEW OF SYSTEMS: A 14-point were conducted, however, the patient is very difficult, unstable, and disoriented at this time. PHYSICAL EXAMINATION: Vital Signs: Stable. Temperature 97.8 degrees, pulse 120, respirations 20, blood pressure 100/56 on Kp-Synephrine. She went down as much as 60/40. O2 saturation 99% on 2 L nasal cannula. General: Very thin and elderly lady and looks very pale and disoriented. HEENT: No scleral icterus. Marked conjunctival pallor present. Neck: Supple. Trachea in the midline. Heart: Hyperdynamic heart sounds. Lungs: Clear. Abdomen: Soft, tender in the epigastrium. Bowel sounds are hyperactive. Extremities: No cyanosis, clubbing , or edema. Skin: Very pale. She has multiple scabs both on her hands and legs. According to the family, she is anxious and it is probably related to dermatitis from scratching. Neurological : Confused. No focal deficit. LABORATORY DATA: WBC 12. Hemoglobin 5.9, hematocrit 18.9, platelets 342,000. Coagulase normal. Creatinine 1.8. IMPRESSION AND PLAN: 1. Massive upper gastrointestinal bleed. The patient is receiving units. She is on vasopressors and IV bolus. 2. Acute kidney zvyjxi-dx-hzqxece kidney, stage 3. 3. History of hypertension. Now hypotension from bleeding. 4. Hyperlipidemia. 5. Hypothyroidism. 6. History of arthritis. 7. Last month. PLAN: I think we need to continue to resuscitate. She appears quite unstable, and we should transfuse so vigorously and it takes her to the OR to do upper endoscopy. We will do it under endotracheal intubation to prevent aspiration. Patient is in quite critical Shape. I have talked to the family about this and regard consent and we will proceed with upper GI endoscopy. cc: Terri Keene MD MTDD
[2017-04-19] MEDS ORDERED: PROTONIX IV SCH (07:21)
--- NOTE | 2017-04-22 00:23 | DISCHARGE SUMMARY ---
ADMISSION DATE: 04/15/2017 DISCHARGE DATE: 04/16/2017 FINAL DISCHARGE DIAGNOSES: 1. Acute respiratory failure. 2. Septic shock. 3. Pneumonia secondary to Klebsiella. 4. Bacteremia secondary to Klebsiella. 5. Acute kidney injury. 6. Gastrointestinal bleed secondary to a duodenal ulcer. CONSULTATIONS REQUESTED DURING THIS HOSPITAL STAY: 1. GI consultation with Dr. Keene. 2. Pulmonary consultation with Dr. Blanton. PROCEDURES PERFORMED DURING THIS HOSPITAL STAY: EGD performed on 04/16/2017 at which time a duodenal ulcer with fresh oozing blood was discovered and it was injected. HOSPITAL COURSE: Ms Lacy is a 81-year-old female who was brought to the ER after having an episode of hematemesis and blood in the stool. The patient was noted to be septic and ultimately was intubated and placed on the ventilator. The patient was pruitt cultured and broad-spectrum antibiotics were started. GI was immediately consulted and the patient was taken for endoscopy on 04/16/2017. It was noted that the patient had a bleeding duodenal ulcer and it was injected. The patient was also placed on a Protonix drip. Despite therapy the patient's clinical condition continued to deteriorate. The patient became more and more hypotensive and was placed on multiple pressors with no improvement in her blood pressure. Ultimately the patient's blood and sputum cultures grew out Klebsiella. The patient was also seen by the farm loan representative and it was deemed that the patient had a very poor prognosis. This was discussed with the patient's family at great length who opted to make the patient a DNR level 1. The patient's family then decided to discontinue all medications except for the medications responsible for keeping the patient comfortable. On 04/16/2017 the patient was pronounced at 1720. The patient's family was present at the bedside at the time of . cc: Vickie Dickey MD
== END 2017-04-16 17:20 | disposition expired ==
LOC: ED 19:29 → SUATTDRO 23:09 → ICU 23:09
PROVIDERS: ATTEND Internal Medicine